=== PATIENT | female | born 1945 | race Caucasian/White ===

== ENCOUNTER 2019-02-23 10:19 | Day surgery (SDC) | payer MEDICARE, OTHER ==
[~2019-02-23] VITALS: Ht 157.5 cm; Wt 62.7 kg
[2019-02-23] MEDS ORDERED: ATOR40TA PO ×2 (14:29→14:33)
[2019-02-23] MEDS ORDERED: Prozac20 MG (14:30)
[2019-02-23] MEDS ORDERED: LEVSOD88 PO (14:30)
[2019-02-23] MEDS ORDERED: GABA800 PO (14:30)
[2019-02-23] MEDS ORDERED: Toviaz8 MG PO (14:30)
[2019-02-23] MEDS ORDERED: MONT10T (14:31)
[2019-02-23] MEDS ORDERED: ESTEST.625 (14:31)
[2019-02-23] MEDS ORDERED: FLUT1DIS5 (14:31)
[2019-02-23] MEDS ORDERED: ALBU90OI6 INH (14:32)
[2019-02-23] MEDS ORDERED: FISH OIL 1,0001 EAC1 PO (14:32)
[2019-02-23] MEDS ORDERED: OMEPRAZOLE20 MG PO (14:32)
[2019-02-23] MEDS ORDERED: ACYC400 PO (14:33)
[2019-02-23] MEDS ORDERED: QUET25 PO (14:33)
[2019-02-23] MEDS ORDERED: ESTR2 PO (14:34)
== END 2019-02-23 12:21 | disposition home or self-care (01) ==
LOC: ORSCSDS 10:19
PROVIDERS: Internal Medicine Gastroenterology
PROC: 0DBP8ZX Excision of Rectum, Via Natural or Artificial Opening Endoscopic, Diagnostic (ICD-10-PCS; principal; 2019-02-23 12:00)
PROC: 0DBK8ZX Excision of Ascending Colon, Via Natural or Artificial Opening Endoscopic, Diagnostic (ICD-10-PCS; principal; 2019-02-23 12:00)
PROC: 0DBH8ZX Excision of Cecum, Via Natural or Artificial Opening Endoscopic, Diagnostic (ICD-10-PCS; principal; 2019-02-23 12:00)
DX: Z12.11 Encounter for screening for malignant neoplasm of colon (principal); D12.0 Benign neoplasm of cecum; D12.2 Benign neoplasm of ascending colon; K64.8 Other hemorrhoids; K57.30 Diverticulosis of large intestine without perforation or abscess without bleeding; E78.5 Hyperlipidemia, unspecified; J45.909 Unspecified asthma, uncomplicated; E03.9 Hypothyroidism, unspecified; G25.0 Essential tremor; K21.9 Gastro-esophageal reflux disease without esophagitis; F31.81 Bipolar II disorder; G47.33 Obstructive sleep apnea (adult) (pediatric); Z79.899 Other long term (current) drug therapy
CPT/HCPCS: 88305; J2704; J7120

== ENCOUNTER → 2019-05-16 | Outpatient (CLI) | payer MEDICARE, OTHER ==
[~2019-05-16] MED LIST: ACYC400 PO; ALBU90OI6 INH; ATOR40TA PO; CYCL0.05OP; ESTEST.625; ESTR2 PO; FISH OIL 1,0001 EAC1 PO; FLUT1DIS5; GABA800 PO; LEVSOD88 PO; MONT10T; OMEPRAZOLE20 MG PO; Prozac20 MG; QUET25 PO; Toviaz8 MG PO; Zantac150 MG
[2019-05-16 10:11] LABS: BASOPHILS ABSOLUTE AUTO 0.03 K/mm3 (0.00-0.23); BASOPHILS PERCENT AUTO 0 % (0-2); EOSINOPHILS ABSOLUTE AUTO 0.15 K/mm3 (0.00-0.68); EOSINOPHILS PERCENT AUTO 1 % (0-6); Hematocrit 35.7 % (33.0-51.0); Hemoglobin 12.1 g/dL (11.5-16.0); IMMATURE GRAN ABSOLUTE AUTO 0.06 K/mm3 (0.00-0.10); IMMATURE GRAN PERCENT AUTO 1 % (0-1); LYMPHOCYTES PERCENT AUTO 8 % (21-46); MONOCYTES ABSOLUTE AUTO 1.63 K/mm3 (0.16-1.47); MONOCYTES PERCENT AUTO 14 % (4-13); Mean Corpuscular HGB 31.1 pg (26.0-34.0); Mean Corpuscular HGB Conc 33.9 g/dL (31.5-36.5); Mean Corpuscular Volume 92 fL (80-100); Mean Platelet Volume 11.2 fL (9.1-12.4); NEUTROPHILS ABSOLUTE AUTO 8.99 K/mm3 (1.96-9.15); NEUTROPHILS PERCENT AUTO 76 % (41-73); Platelet Count 177 K/mm3 (150-400); RDW Coefficient Variation 14.4 % (11.7-14.2); RDW Standard Deviation 48.3 fL (35.1-46.3); Red Blood Cell Count 3.89 M/mm3 (3.80-5.20); White Blood Cell Count 11.86 K/mm3 (4.00-11.30)
[2019-05-16 11:38] LABS: Albumin, Blood 2.9 g/dL (3.4-5.0); Albumin/Globulin Ratio 0.7 (0.8-1.8); Bilirubin, Total 0.6 mg/dL (0.1-1.0); Bun/Creatinine Ratio 14.8 (12.0-20.0); Calcium, Blood 8.9 mg/dL (8.5-10.1); Creatinine, Blood 1.62 mg/dL (0.40-1.00); Potassium, Blood 4.3 mmol/L (3.5-5.5); Total Protein, Blood 6.9 g/dL (6.4-8.2)
[2019-05-16 11:43] LABS: Thyroid Stimulating Hormone 0.219 uIU/mL (0.360-4.800)
== END | disposition home or self-care (01) ==
LOC: LAB EV 10:05 → LAB SHORT 10:05
PROVIDERS: Physician Assistant
DX: N39.0 Urinary tract infection, site not specified (principal); R53.83 Other fatigue
CPT/HCPCS: 80053; 84443; 85025; 87077; 87086; 87147; 87186

== ENCOUNTER 2019-08-07 10:50 | Day surgery (SDC) | payer MEDICARE, OTHER ==
[~2019-08-07] VITALS: Ht 154.9 cm; Wt 59.8 kg
[~2019-08-07 10:50] MED LIST changes: -CYCL0.05OP; -Zantac150 MG
[2019-08-07] MEDS ORDERED: Zantac150 MG (12:13)
[2019-08-07] MEDS ORDERED: CYCL0.05OP (12:14)
== END 2019-08-07 13:20 | disposition home or self-care (01) ==
LOC: ORSCSDS 10:50
PROVIDERS: Internal Medicine Gastroenterology
PROC: 0DB68ZX Excision of Stomach, Via Natural or Artificial Opening Endoscopic, Diagnostic (ICD-10-PCS; principal; 2019-08-07 12:15)
DX: K21.9 Gastro-esophageal reflux disease without esophagitis (principal); E03.9 Hypothyroidism, unspecified; J45.909 Unspecified asthma, uncomplicated; E78.5 Hyperlipidemia, unspecified; G47.33 Obstructive sleep apnea (adult) (pediatric); F31.9 Bipolar disorder, unspecified; K44.9 Diaphragmatic hernia without obstruction or gangrene; I89.0 Lymphedema, not elsewhere classified; Z79.899 Other long term (current) drug therapy
CPT/HCPCS: 36415; 80053; 88305; 88342; J2704; J7120

== ENCOUNTER → 2019-12-31 | Outpatient (CLI) | payer MEDICARE, OTHER ==
[~2019-12-31] MED LIST changes: +CYCL0.05OP; +Zantac150 MG
== END | disposition home or self-care (01) ==
LOC: LAB EV 13:26 → LAB SHORT 13:26
DX: N39.0 Urinary tract infection, site not specified (principal)
CPT/HCPCS: 87077; 87086; 87186

== ENCOUNTER → 2020-07-11 | Outpatient (CLI) | payer MEDICARE, OTHER ==
[2020-07-11 13:48] LABS: Source, Urine Clean Catch
[2020-07-11 15:29] LABS: Bilirubin, Urine Neg (Neg); Blood, Urine Neg (Neg); Glucose Qualitative, Urine Neg (Neg); Ketones, Urine Neg (Neg); Leukocyte Esterase, Urine Neg (Neg); Nitrite, Urine Neg (Neg); Protein, Urine Neg (Neg); Specific Gravity, Urine 1.015 (1.003-1.022); Urobilinogen, Urine NORM (Normal)
[2020-07-11 15:46] LABS: Appearance, Urine Clear (Clear); Color, Urine Yellow (P-Yellow)
== END ==
LOC: LAB SHORT 13:47 → OLS 13:47
PROVIDERS: Internal Medicine
DX: N39.0 Urinary tract infection, site not specified (principal)
CPT/HCPCS: 81003

== ENCOUNTER 2021-04-12 12:37 | Inpatient (IN) | payer MEDICARE, OTHER ==
[~2021-04-12] VITALS: Ht 152.4 cm; Wt 64.5 kg
[~2021-04-12 12:37] MED LIST changes: -MONT10T; +MONT10T PO
[2021-04-12 13:03] LABS: BASOPHILS ABSOLUTE AUTO 0.06 K/mm3 (0.00-0.23); BASOPHILS PERCENT AUTO 1 % (0-2); EOSINOPHILS ABSOLUTE AUTO 0.66 K/mm3 (0.00-0.68); EOSINOPHILS PERCENT AUTO 6 % (0-6); Hematocrit 35.9 % (33.0-51.0); Hemoglobin 11.8 g/dL (11.5-16.0); IMMATURE GRAN ABSOLUTE AUTO 0.03 K/mm3 (0.00-0.10); IMMATURE GRAN PERCENT AUTO 0 % (0-1); LYMPHOCYTES ABSOLUTE AUTO 1.74 K/mm3 (0.84-5.20); LYMPHOCYTES PERCENT AUTO 16 % (21-46); MONOCYTES PERCENT AUTO 6 % (4-13); Mean Corpuscular HGB 31.8 pg (26.0-34.0); Mean Corpuscular HGB Conc 32.9 g/dL (31.5-36.5); Mean Corpuscular Volume 97 fL (80-100); Mean Platelet Volume 11.5 fL (9.1-12.4); NEUTROPHILS ABSOLUTE AUTO 7.78 K/mm3 (1.96-9.15); NEUTROPHILS PERCENT AUTO 71 % (41-73); Platelet Count 215 K/mm3 (150-400); RDW Coefficient Variation 14.3 % (11.7-14.2); RDW Standard Deviation 50.8 fL (35.1-46.3); Red Blood Cell Count 3.71 M/mm3 (3.80-5.20); White Blood Cell Count 10.97 K/mm3 (4.00-11.30)
[2021-04-12] MEDS ORDERED: PROZAC40 MG PO (13:27)
[2021-04-12] MEDS ORDERED: QUETIAPINE FUMA25 MG PO (13:28)
[2021-04-12] MEDS ORDERED: GABA400 PO (13:28)
[2021-04-12] MEDS ORDERED: Neurontin800 MG PO (13:28)
[2021-04-12] MEDS ORDERED: SYNTHROID50 MC1 PO (13:29)
[2021-04-12] MEDS ORDERED: Toviaz8 MG PO (13:29)
[2021-04-12 13:32] LABS: Albumin, Blood 3.2 g/dL (3.4-5.0); Albumin/Globulin Ratio 0.9 (0.8-1.8); Bilirubin, Total 0.3 mg/dL (0.1-1.0); Bun/Creatinine Ratio 49.3 (12.0-20.0); Calcium, Blood 9.7 mg/dL (8.5-10.1); Creatinine, Blood 1.42 mg/dL (0.40-1.00); Globulin, Blood 3.4 g/dL (2.2-4.0); Potassium, Blood 4.3 mmol/L (3.5-5.5); Total Protein, Blood 6.6 g/dL (6.4-8.2)
[2021-04-12 16:57] LABS: SARS-Cov-2 (COVID-19) PCR, MMC NEGATIVE (NEGATIVE)
[2021-04-12] MEDS ORDERED: ESTRADIOL1 MG PO (17:37)
[2021-04-12] MEDS ORDERED: THERA-D2000 UNIT PO (17:38)
[2021-04-12] MEDS ORDERED: FLUT1DIS5 INH (17:38)
[2021-04-12] MEDS ORDERED: Calcium Acetat667 MG PO (17:39)
[2021-04-12] MEDS ORDERED: FISH OIL 1,2001 EAC7 PO (17:40)
[2021-04-12] MEDS ORDERED: DOCU100 PO (17:41)
--- NOTE | 2021-04-12 18:39 | NUR ---
SHIFT SUMMARY PT ARRIVED TO PCU FROM THE ER THIS AFTERNOON. PT REPORTED BLOODY EMESIS AND TARRY DARK STOOL PRIOR TO ADMISSION OVER THE LAST FEW DAYS. PT REPORTS HAVING A VERY MILD EARLY STAGE DEMENTIA AND HAS SOME GAPS IN HER SHORT TERM MEMORY, SHE COULD NOT REMEMBER ALL THE DETAILS OF THIS EVENT AND HAD TO REFER TO HER FOR HELP. PT IS OTHERWISE ALERT AND ORIENTED X4, PT DOES HAVE SOME SLIGHT UNSTEADY GAIT AND REPORTS FEELING MORE WEAK THAN NORMAL AND WOULD BENEFIT FROM SBA. PT HAS PROTONIX RUNNING IN THE IV AND DR. DUNLAP PLANS FOR AN EGD THIS EVENING. ADMISSION SCREENING, HISTORY, MED REC AND ASSESSMENT ARE COMPLETE. PT IS RESTING IN BED AT THIS TIME
[2021-04-12 18:58] LABS: Hematocrit 30.3 % (33.0-51.0); Hemoglobin 10.1 g/dL (11.5-16.0)
--- NOTE | 2021-04-12 21:55 | NUR ---
History, Chart, Medications and Allergies reviewed before start of procedure. Patient confirms NPO status and agrees with scheduled surgery.
--- NOTE | 2021-04-12 22:11 | NUR ---
04/12/21 2211 Mila Kowalski History, Chart, Medications and Allergies reviewed before start of procedure. Patient confirms NPO status and agrees with scheduled surgery. 3-LEAD EKG REVIEWED WITH PHYSICIAN PRIOR TO START OF PROCEDURE. MONITOR INTACT WITH CONTINUOUS PULSE OXIMETRY AND INTERMITTENT BP. PATIENT DETERMINED TO BE ASA APPROPRIATE FOR PROPOFOL SEDATION PRIOR TO START OF PROCEDURE BY DR. DUNLAP.
[2021-04-13 00:33] LABS: Hematocrit 27.6 % (33.0-51.0); Hemoglobin 9.3 g/dL (11.5-16.0)
--- NOTE | 2021-04-13 03:03 | NUR ---
PATIENT IS IMPULSIVE, FORGETFUL AT TIMES, WAXES AND WANES WITH MENTATION POSSIBLE , BED ALARM IS ON, EDUCATION PROVIDED ON HOW TO USE THE CALL LIGHT, PATIENT DOESN'T REMEMBER HAVING PROCEDURE TONIGHT. WILL REORIETATE PATIENT THROUGHOUT THE EVENING.
[2021-04-13 06:09] LABS: Hematocrit 25.7 % (33.0-51.0); Hemoglobin 8.5 g/dL (11.5-16.0); Mean Corpuscular HGB 32.1 pg (26.0-34.0); Mean Corpuscular HGB Conc 33.1 g/dL (31.5-36.5); Mean Corpuscular Volume 97 fL (80-100); Mean Platelet Volume 11.4 fL (9.1-12.4); Platelet Count 159 K/mm3 (150-400); RDW Coefficient Variation 14.6 % (11.7-14.2); Red Blood Cell Count 2.65 M/mm3 (3.80-5.20); White Blood Cell Count 8.49 K/mm3 (4.00-11.30)
[2021-04-13 06:30] LABS: Bun/Creatinine Ratio 35.9 (12.0-20.0); Calcium, Blood 8.3 mg/dL (8.5-10.1); Creatinine, Blood 1.45 mg/dL (0.40-1.00); Potassium, Blood 3.7 mmol/L (3.5-5.5)
--- NOTE | 2021-04-13 13:14 | NUR ---
Patient is lying in bed and alert. Patient immediately tells me about her [employer] Day Rastafarian/Christianity background. She explains how she welcomes all faiths but finds her connection these days in the [employer]. 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 She states that she is Bipolar and has Dementia. 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 She explains about the events that led to her hospitalization and how she is nervous about what might be happening to her medically. I reinforce helpful attitudes and practices and provide therapeutic listening and prayer. I will continue to remain available to patient and family.
--- NOTE | 2021-04-13 17:25 | NUR ---
SHIFT NOTE PT IS IMPLUSIVE, BED ALARM IS ARMED PT SETS OFF BED ALARM TWICE TODAY SHE ATTEMPTED TO EXIT BED WITHOUT USING CALL LIGHT. NO ACTIVE BLEEDING NOTED THIS SHIFT. PT WITH SMALL BLACK PEBBLE BM THIS AFTERNOON. PT WAS UP TO SHOWER WITH PCT WHICH SHE HAD STEADY GAIT AND TOLERATED SHOWER WELL. VSS. PT DENIES PAIN.
--- NOTE | 2021-04-13 18:12 | NUR ---
ASSISTED TO BEDSIDE COMMODE TO VOID, AND THEN BACK IN BED.
--- NOTE | 2021-04-14 05:21 | NUR ---
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 NO NEW CONCERNS OVER NIGHT, SHE HAD ONE SOFT PRESSURE AND RESOLVED OVERNIGHT.
[2021-04-14 09:46] LABS: Hematocrit 27.2 % (33.0-51.0); Hemoglobin 8.9 g/dL (11.5-16.0)
[2021-04-14 16:55] LABS: BASOPHILS ABSOLUTE AUTO 0.07 K/mm3 (0.00-0.23); BASOPHILS PERCENT AUTO 1 % (0-2); EOSINOPHILS ABSOLUTE AUTO 0.77 K/mm3 (0.00-0.68); EOSINOPHILS PERCENT AUTO 10 % (0-6); Hematocrit 27.1 % (33.0-51.0); Hemoglobin 8.9 g/dL (11.5-16.0); IMMATURE GRAN ABSOLUTE AUTO 0.02 K/mm3 (0.00-0.10); IMMATURE GRAN PERCENT AUTO 0 % (0-1); LYMPHOCYTES ABSOLUTE AUTO 1.89 K/mm3 (0.84-5.20); LYMPHOCYTES PERCENT AUTO 25 % (21-46); MONOCYTES ABSOLUTE AUTO 0.81 K/mm3 (0.16-1.47); MONOCYTES PERCENT AUTO 11 % (4-13); Mean Corpuscular HGB 32.4 pg (26.0-34.0); Mean Corpuscular HGB Conc 32.8 g/dL (31.5-36.5); Mean Corpuscular Volume 99 fL (80-100); Mean Platelet Volume 12.2 fL (9.1-12.4); NEUTROPHILS ABSOLUTE AUTO 4.11 K/mm3 (1.96-9.15); NEUTROPHILS PERCENT AUTO 54 % (41-73); Platelet Count 146 K/mm3 (150-400); RDW Coefficient Variation 14.7 % (11.7-14.2); RDW Standard Deviation 53.1 fL (35.1-46.3); Red Blood Cell Count 2.75 M/mm3 (3.80-5.20); White Blood Cell Count 7.67 K/mm3 (4.00-11.30)
--- NOTE | 2021-04-14 18:49 | NUR ---
SHIFT NOTE PT REAMINS ON CONTINUOUS PROTONIX DRIP. PT HAS BEEN SBA UP TO BATHROOM. PT DENIES PAIN. BLACK PEBBLE STOOLS NOTED. VSS. PT OTHERWISE WITH NO ACUTE CHANGES
[2021-04-15 04:23] LABS: Hematocrit 26.7 % (33.0-51.0); Hemoglobin 8.8 g/dL (11.5-16.0)
--- NOTE | 2021-04-15 12:21 | NUR ---
PT ALERT AND ORIENTED X4. AT TIMES CONFUSION BUT ABLE TO REORIENT SELF. REPETATIVE AT TIMES. STATES SHE HAS A SMALL AMOUNT OF DEMENTIA. ON ROOM AIR SATING ABOVE 94%. DENIES SOB. TELE SHOWING SINUS WITH HR 70'S. DENIES CHEST PAIN/PRESSURE. VITAL SIGNS STABLE. BOWEL TONES PRESENT. PERIPHERAL PULSES STRONG. HAD A FORMED DARK BOWEL MOVMENT THIS AM. NO SIGNS OF ACTIVE BLEEDING. PROTONIX INFUSING. ORDERS TO STOP PROTONIX AT [address] DUNLAP. EATING WELL. UP TO BSC WITH STAND BY ASSIST. UPPER ARM POWERGLIDE. DENIES NAUSES. CALL LIGHT IN REACH. WILL CONTINUE TO MONITOR.
--- NOTE | 2021-04-15 12:35 | NUR ---
UPDATE: SPOKE TO DR. DUNLAP ON THE PHONE AND ORDERS FOR PROTONIX DRIP TO STOP AT 1900 AND PO PROTONIX TO BEGIN THIS EVENING. PT WILL BEGIN REGULAR DIET FOR DINNER.
--- NOTE | 2021-04-15 18:50 | NUR ---
SHIFT SUMMARY: NO ACUTE CHANGES, SEE PREVIOUS NOTES. PROTONIX WILL BE STOPPED AT 1900. UP TO BEDSIDE COMMODE WITH 1 PERSON ASSIST. DENIES PAIN OR NEEDS AT THIS TIME. EATING WELL. USING CALL LIGHT APPROPRIATLY. VTIAL SIGNS REMAIN STABLE. WILL CONTINUE TO MONITOR AND REPORT OFF.
--- NOTE | 2021-04-15 19:06 | NUR ---
PROTONIX DRIP STOPPED, IV FLUSHED AND SALINE LOCKED. REPORTED OFF TO SHOE REPAIR SUPERVISOR RN.
--- NOTE | 2021-04-15 22:12 | NUR ---
ASSUMED CARE NOTE: ASSUMED CARE OF PT AT 1900, RECEVIED REPORT FROM MELLY LESTER. PT IS ABLE AND ORIENTEDX3, HOWEVER, STS SHE IS FORGETFUL AT TIMES. PT IS ON CPAP, WITH SpO2 ABOVE 90%, NO RESP DISTRESS NOTED. PT ON TELE WITH HR IN THE 60-70, BP STABLE. PT DENIES NAUSEA AT TIME. PT SWITCHED TO PO PROTONIX, IV DRIP D/C AT 1900. PT IS A SBA TO RESTROOM, BED ALARM ON DUE TO PT BEING IMPULSIVE. HOWEVER, STEADY GAIT. WILL MONITOR FOR SIGNS OF GI BLEED. CALL LIGHT WITHIN REACH, BED AT LOWEST LEVEL.
--- NOTE | 2021-04-16 05:57 | NUR ---
SHIFT SUMMARY: NO ACUTE CHANGES OVER NIGHT. PT CONTINUES TO BE ALERT AND ORIENTED, IS IMPULSIVE AND WILL GET OUT OF BED W/O ASSISTANCE TO USE BSC. PT STS SHE IS UNABLE TO WAIT, DUE URINARY URGENCY. THEREFORE BED ALARM IS ON FOR PATIENT SAFTEY. PT HAS BEEN IN SR WITH HR IN THE 70'S, BP STABLE. NO S/S OF GI DISTRESS/ BLEEDING. PT ON RA WITH SPO2 ABOVE 90% . WILL CONTINUE TO MONITOR PT UNTIL REPORT IS GIVEN TO ONCOMING SHIFT.
--- NOTE | 2021-04-16 11:00 | NUR ---
PT ALERT AND ORIENTED X4. AT TIMES FORGETFUL. ON ROOM AIR SATING ABOVE 94%. DENIES SOB. TELE SHOWING SINUS WITH HR IN THE 70'S. DENIES CHEST PAIN/PRESSURE. VITAL SIGNS STABLE. ABDOMEN SOFT/NONTENDER. DENIES NAUSEA. NO SIGNS OF ACTIVE BLEED. NO STOOL THIS AM. IV TO UPPER LEFT ARM FLUSHING WELL AND SALINE LOCKED. ONE PERSON ASSIST FOR SAFETY TO BEDSIDE COMMODE. EATING WELL. CALL LIGHT IN REACH. WILL CONTINUE TO MONITOR.
[2021-04-16] MEDS ORDERED: PANT40 PO (12:17)
--- NOTE | 2021-04-16 12:51 | NUR ---
DISCHARGE: NO ACUTE CHANGES, SEE PREVIOUS NOTE. VITAL SIGNS REMAIN STABLE. NO SIGNS OF BLEEDING OR NAUSEA. ABDOMEN REMAINS SOFT AND NONTENDER. DISCHARGE INSTRUCTIONS REVIEWED AND QUESTIONS ANSWERED. IV TAKEN OUT PER PROTOCOL. TELE REMOVED. 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 LEFT UNIT WITH AND PERSONAL BELONGINGS.
== END 2021-04-16 12:34 | disposition home or self-care (01) | DRG 392 ==
LOC: ER 12:37 → PCU 14:59 → ER 14:59 → PCU 15:00 → ER 15:00 → PCU 15:00
PROVIDERS: Internal Medicine Gastroenterology; Physician Assistant; ADMIT Internal Medicine
PROC: 0W3P8ZZ Control Bleeding in Gastrointestinal Tract, Via Natural or Artificial Opening Endoscopic (ICD-10-PCS; principal; 2021-04-12 16:30)
PROC: 5A09357 Assistance with Respiratory Ventilation, Less than 24 Consecutive Hours, Continuous Positive Airway Pressure (ICD-10-PCS; 2021-04-13)
DX: K22.8 Other specified diseases of esophagus (principal); Z20.822 Contact with and (suspected) exposure to COVID-19; D50.0 Iron deficiency anemia secondary to blood loss (chronic); K22.2 Esophageal obstruction; K21.9 Gastro-esophageal reflux disease without esophagitis; K44.9 Diaphragmatic hernia without obstruction or gangrene; G31.09 Other frontotemporal neurocognitive disorder; F02.80 Dementia in other diseases classified elsewhere, unspecified severity, without behavioral disturbance, psychotic disturbance, mood disturbance, and anxiety; E78.5 Hyperlipidemia, unspecified; J45.909 Unspecified asthma, uncomplicated; E03.9 Hypothyroidism, unspecified; F31.9 Bipolar disorder, unspecified; N18.30 Chronic kidney disease, stage 3 unspecified; G47.33 Obstructive sleep apnea (adult) (pediatric); Z86.010 Personal history of colon polyps; Z90.5 Acquired absence of kidney; Z88.2 Allergy status to sulfonamides; Z88.8 Allergy status to other drugs, medicaments and biological substances; Z79.899 Other long term (current) drug therapy; Z79.51 Long term (current) use of inhaled steroids
CPT/HCPCS: 36415; 80048; 80053; 83690; 85014; 85018; 85025; 85027; 86900; 86901; 93005; 93010; 94640; 94660; 94760; 94762; 96374; 96376; 99285-25; A9270; C9113; G0378; G0480; J0171; J2250; J2405; J2704; J7030; J7120; U0004

== ENCOUNTER → 2021-05-26 | Outpatient (CLI) | payer MEDICARE, OTHER ==
[~2021-05-26] MED LIST changes: +Calcium Acetat667 MG PO; +DOCU100 PO; +ESTRADIOL1 MG PO; +FISH OIL 1,2001 EAC7 PO; +FLUT1DIS5 INH; +GABA400 PO; +Neurontin800 MG PO; +PANT40 PO; +PROZAC40 MG PO; +QUETIAPINE FUMA25 MG PO; +SYNTHROID50 MC1 PO; +THERA-D2000 UNIT PO
[2021-05-26 17:33] LABS: BASOPHILS ABSOLUTE AUTO 0.04 K/mm3 (0.00-0.23); BASOPHILS PERCENT AUTO 0 % (0-2); EOSINOPHILS ABSOLUTE AUTO 1.25 K/mm3 (0.00-0.68); EOSINOPHILS PERCENT AUTO 11 % (0-6); Hematocrit 27.1 % (33.0-51.0); Hemoglobin 8.6 g/dL (11.5-16.0); IMMATURE GRAN ABSOLUTE AUTO 0.03 K/mm3 (0.00-0.10); IMMATURE GRAN PERCENT AUTO 0 % (0-1); LYMPHOCYTES ABSOLUTE AUTO 1.29 K/mm3 (0.84-5.20); LYMPHOCYTES PERCENT AUTO 12 % (21-46); MONOCYTES ABSOLUTE AUTO 1.22 K/mm3 (0.16-1.47); MONOCYTES PERCENT AUTO 11 % (4-13); Mean Corpuscular HGB Conc 31.7 g/dL (31.5-36.5); Mean Corpuscular Volume 88 fL (80-100); Mean Platelet Volume 10.9 fL (9.1-12.4); NEUTROPHILS ABSOLUTE AUTO 7.12 K/mm3 (1.96-9.15); NEUTROPHILS PERCENT AUTO 65 % (41-73); NRBC ABSOLUTE 0.04 K/mm3 (0.00-0.02); NRBC Auto 0.4 /100 WBC (0.0-0.2); Platelet Count 356 K/mm3 (150-400); RDW Coefficient Variation 16.7 % (11.7-14.2); RDW Standard Deviation 53.6 fL (35.1-46.3); Red Blood Cell Count 3.07 M/mm3 (3.80-5.20); White Blood Cell Count 10.95 K/mm3 (4.00-11.30)
[2021-05-26 17:41] LABS: Albumin, Blood 3.1 g/dL (3.4-5.0); Albumin/Globulin Ratio 0.8 (0.8-1.8); Bilirubin, Total 0.4 mg/dL (0.1-1.0); Bun/Creatinine Ratio 15.9 (12.0-20.0); Calcium, Blood 7.7 mg/dL (8.5-10.1); Creatinine, Blood 1.32 mg/dL (0.40-1.00); Globulin, Blood 3.9 g/dL (2.2-4.0); Potassium, Blood 3.9 mmol/L (3.5-5.5)
== END | disposition home or self-care (01) ==
LOC: LAB 17:27 → LAB SHORT 17:27
PROVIDERS: Physician Assistant
DX: R53.83 Other fatigue (principal)
CPT/HCPCS: 80053; 85025

== ENCOUNTER 2021-05-28 13:37 | Inpatient (IN) | payer MEDICARE, OTHER ==
[~2021-05-28] VITALS: Ht 162.6 cm; Wt 61.0 kg
[2021-05-28 14:52] LABS: BASOPHILS ABSOLUTE AUTO 0.04 K/mm3 (0.00-0.23); BASOPHILS PERCENT AUTO 0 % (0-2); EOSINOPHILS ABSOLUTE AUTO 0.48 K/mm3 (0.00-0.68); EOSINOPHILS PERCENT AUTO 3 % (0-6); Hematocrit 26.5 % (33.0-51.0); Hemoglobin 8.1 g/dL (11.5-16.0); IMMATURE GRAN ABSOLUTE AUTO 0.08 K/mm3 (0.00-0.10); IMMATURE GRAN PERCENT AUTO 1 % (0-1); LYMPHOCYTES ABSOLUTE AUTO 1.24 K/mm3 (0.84-5.20); LYMPHOCYTES PERCENT AUTO 7 % (21-46); MONOCYTES ABSOLUTE AUTO 1.65 K/mm3 (0.16-1.47); MONOCYTES PERCENT AUTO 9 % (4-13); Mean Corpuscular HGB 27.4 pg (26.0-34.0); Mean Corpuscular HGB Conc 30.6 g/dL (31.5-36.5); Mean Corpuscular Volume 90 fL (80-100); Mean Platelet Volume 10.7 fL (9.1-12.4); NEUTROPHILS PERCENT AUTO 80 % (41-73); NRBC ABSOLUTE 0.04 K/mm3 (0.00-0.02); NRBC Auto 0.2 /100 WBC (0.0-0.2); Platelet Count 329 K/mm3 (150-400); RDW Standard Deviation 55.8 fL (35.1-46.3); Red Blood Cell Count 2.96 M/mm3 (3.80-5.20); White Blood Cell Count 17.49 K/mm3 (4.00-11.30)
[2021-05-28 15:10] LABS: Albumin, Blood 2.8 g/dL (3.4-5.0); Albumin/Globulin Ratio 0.9 (0.8-1.8); Bilirubin, Total 0.3 mg/dL (0.1-1.0); Bun/Creatinine Ratio 14.6 (12.0-20.0); Calcium, Blood 7.6 mg/dL (8.5-10.1); Creatinine, Blood 1.23 mg/dL (0.40-1.00); Globulin, Blood 3.1 g/dL (2.2-4.0); Total Protein, Blood 5.9 g/dL (6.4-8.2)
[2021-05-28 20:02] LABS: Adenovirus F 40/41 Not Detected (NOT DETECT); Astrovirus Not Detected (NOT DETECT); Campylobacter Sp Not Detected (NOT DETECT); Cryptosporidium Not Detected (NOT DETECT); Cyclospora Cayetanensis Not Detected (NOT DETECT); E. Coli O157 Not Detected (NOT DETECT); Entamoeba Histolytica Not Detected (NOT DETECT); Enteroaggregative E. coli-EAEC Not Detected (NOT DETECT); Enteropathogenic E. coli-EPEC Not Detected (NOT DETECT); Enterotoxigenic E. coli-ETEC Not Detected (NOT DETECT); Giardia Lamblia Not Detected (NOT DETECT); Norovirus GI/GII Not Detected (NOT DETECT); Plesiomonas Shigelloides Not Detected (NOT DETECT); Rotavirus A Not Detected (NOT DETECT); Salmonella Sp Not Detected (NOT DETECT); Sapovirus Not Detected (NOT DETECT); Shiga Toxin-prod E. coli-STEC Not Detected (NOT DETECT); Shigella/Enteroin E. coli-EIEC Not Detected (NOT DETECT); Vibrio Cholerae Not Detected (NOT DETECT); Vibrio Sp Not Detected (NOT DETECT); Yersinia Enterocolitica Not Detected (NOT DETECT)
[2021-05-28 20:25] LABS: Source, Urine Clean Catch
[2021-05-28 20:33] LABS: Appearance, Urine Clear (Clear); Bilirubin, Urine Neg (Neg); Blood, Urine Neg (Neg); Color, Urine Yellow (P-Yellow); Glucose Qualitative, Urine Neg (Neg); Ketones, Urine Neg (Neg); Leukocyte Esterase, Urine 1+ (Neg); Nitrite, Urine Neg (Neg); Protein, Urine 1+ (Neg); Urobilinogen, Urine NORM (Normal)
[2021-05-28 20:46] LABS: Bacteria Mod /hpf; Red Blood Cells, Urine Not Seen /hpf (0-2); Squamous Epithelial Cells Few /hpf (Few); White Blood Cells, Urine 0-2 /hpf (0-5)
--- NOTE | 2021-05-28 22:40 | NUR ---
REPORT RECIEVED FROM RAHEEM KINSEY RN AT 2234 AND AWAITING PT T/F TO ROOM 360.
--- NOTE | 2021-05-29 04:46 | NUR ---
T/F AND SUMMARY: PT T/F TO ROOM 360 VIA [employer] AT 2253. SHE'S A/OX3 W/SOME REMINDERS REQUIRED TO DATE SPECIFICS. SHE HAS MEMORY ISSUES/DEMENTIA W/BED ALARM ON FOR OCC IMPULSIVITY. CALL LIGHT IN REACH AND PT USED IT CORRECTLY MOST OF NOCTE. SHE ANSWERED Q'S APPROPRIATELY BUT SPEECH WANDERS AT TIMES W/ REFOCUSING OF CONVERSATION NEEDED. SHE'S AN OK HISTORIAN BUT IS UNAWARE OF HOME MEDS, HEALTH HX/MED LIST MOSTLY OBTAINED FROM ELECTRONIC RECORD. SHE REMAINS IN CONTACT ISO FOR C.DIFF AND IS RECIEVING ORAL VANCO PER EMAR. PT DENIED ABDO PAIN AND N/V DESPITE ONGOING DIARRHEA, PANCREATITIS AND GASTRITIS. NS INFUSES AT 100 ML/HR AND PT TOLERATED NPO W/ICE CHIPS. TELEMETRY INTACT IN NSR. BX TX'S PER RT. VSS/AFEBRILE AND NO ACUTE CHANGES, WCTM/REPORT TO DAY RN.
[2021-05-29 04:58] LABS: Hematocrit 23.6 % (33.0-51.0); Hemoglobin 7.2 g/dL (11.5-16.0); Mean Corpuscular HGB 27.4 pg (26.0-34.0); Mean Corpuscular HGB Conc 30.5 g/dL (31.5-36.5); Mean Corpuscular Volume 90 fL (80-100); Mean Platelet Volume 10.8 fL (9.1-12.4); Platelet Count 302 K/mm3 (150-400); RDW Standard Deviation 55.6 fL (35.1-46.3); Red Blood Cell Count 2.63 M/mm3 (3.80-5.20); White Blood Cell Count 15.34 K/mm3 (4.00-11.30)
[2021-05-29 05:30] LABS: Albumin, Blood 2.4 g/dL (3.4-5.0); Albumin/Globulin Ratio 0.8 (0.8-1.8); BAND PERCENT MAN 8 % (0-8); BASOPHILS ABSOLUTE MAN 0.15 K/mm3 (0.00-0.23); BASOPHILS PERCENT MAN 1 % (0-2); Bilirubin, Total 0.4 mg/dL (0.1-1.0); Bun/Creatinine Ratio 12.6 (12.0-20.0); Creatinine, Blood 1.27 mg/dL (0.40-1.00); EOSINOPHILS ABSOLUTE MAN 0.92 K/mm3 (0.00-0.68); EOSINOPHILS PERCENT MAN 6 % (0-6); LYMPHOCYTES ABSOLUTE MAN 0.46 K/mm3 (0.84-5.20); LYMPHOCYTES PERCENT MAN 3 % (21-46); MONOCYTES ABSOLUTE MAN 1.38 K/mm3 (0.16-1.47); MONOCYTES PERCENT MAN 9 % (4-13); NEUTROPHILS ABSOLUTE MAN 12.42 K/mm3 (1.96-9.15); Potassium, Blood 3.6 mmol/L (3.5-5.5); SEG NEUTROPHILS PERCENT MAN 73 % (41-73); TOTAL CELLS COUNTED 100; Total Protein, Blood 5.4 g/dL (6.4-8.2)
--- NOTE | 2021-05-29 14:12 | NUR ---
Upon recieving an admit referral for spiritual care, I visit patient. Patient is pleasant and very talkative. 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 I reinforce helpful attitudes and practices and provide therapeutic listening and prayer. Patient responds well and shows signs of being encouraged in her jennifer.
--- NOTE | 2021-05-29 16:12 | NUR ---
SHIFT SUMMARY PT AxOx4. PLEASANT AND COOPERATIVE WITH CARE. PT REPORTS MULIPLE LOOSE BM TODAY WITH URGENCY TO GET TO TOILET WHEN SHE NEEDS TO GO. PT SBA TO BSC. PT IN FOR VISIT, AND UPDATED ON PLAN OF CARE. IV FLUIDS RUNNING. TELE RUNNING AT SR 86. PT WAS ADVANCED TO LIQUID DIET TODAY AND TOLERATED WELL. PT DENIES PAIN/NEEDS AT THIS TIME. VITALS REVIEWED. PT CURRENTLY RESTING IN BED WITH CALL LIGHT IN REACH.
--- NOTE | 2021-05-30 03:55 | NUR ---
SUMMARY: PT A/OX3-4, CALLS APPROPRIATELY TO SPEFICY NEEDS BUT IS MILDY FORGETFULL AT TIMES W/IMPULSIVITY OOB R/T BM URGENCY. DIARRHEA PERSISTS BUT SEEMS TO HAVE SLOWED IN FREQUENCY. ORAL VANCO BEING RECIEVED PER EMAR. SHE'S SBA TO [facility] W/ALARM ON FOR SAFETY. IVF COMPLETED AND IV SL, PT IS TOLERATING FL DIET W/O ISSUES. SHE'S DENIED PAIN, N/V AND ABDO DISCOMFORT. PT REMAINS NSR AT 70'S-80'S BPM. VSS/AFEBRILE AND NO ACUTE CHANGES. SHE SLEPT MAJORITY OF NOCTE W/O COMPLAINTS. WCTM AND REPORT TO DAY RN.
[2021-05-30 05:09] LABS: BASOPHILS ABSOLUTE AUTO 0.04 K/mm3 (0.00-0.23); BASOPHILS PERCENT AUTO 0 % (0-2); EOSINOPHILS ABSOLUTE AUTO 1.16 K/mm3 (0.00-0.68); EOSINOPHILS PERCENT AUTO 10 % (0-6); Hematocrit 21.8 % (33.0-51.0); Hemoglobin 6.7 g/dL (11.5-16.0); IMMATURE GRAN ABSOLUTE AUTO 0.09 K/mm3 (0.00-0.10); IMMATURE GRAN PERCENT AUTO 1 % (0-1); LYMPHOCYTES ABSOLUTE AUTO 1.86 K/mm3 (0.84-5.20); LYMPHOCYTES PERCENT AUTO 15 % (21-46); MONOCYTES PERCENT AUTO 12 % (4-13); Mean Corpuscular HGB 27.5 pg (26.0-34.0); Mean Corpuscular HGB Conc 30.7 g/dL (31.5-36.5); Mean Corpuscular Volume 89 fL (80-100); Mean Platelet Volume 10.7 fL (9.1-12.4); NEUTROPHILS ABSOLUTE AUTO 7.59 K/mm3 (1.96-9.15); NEUTROPHILS PERCENT AUTO 62 % (41-73); Platelet Count 271 K/mm3 (150-400); RDW Coefficient Variation 16.8 % (11.7-14.2); RDW Standard Deviation 54.7 fL (35.1-46.3); Red Blood Cell Count 2.44 M/mm3 (3.80-5.20); White Blood Cell Count 12.24 K/mm3 (4.00-11.30)
[2021-05-30 05:40] LABS: Bun/Creatinine Ratio 8.3 (12.0-20.0); Calcium, Blood 7.1 mg/dL (8.5-10.1); Creatinine, Blood 1.09 mg/dL (0.40-1.00); Potassium, Blood 3.7 mmol/L (3.5-5.5)
--- NOTE | 2021-05-30 06:09 | NUR ---
HGB/HCT DOWN TO 6.7/21.8 THIS AM. MADE AWARE W/NEW ORDERS RECIEVED TO TRANSFUSE 1 UNIT PRBC'S. PT HAS DENIED ABDO PAIN, DISTENSION, N/V AND HASN'T SHOWN ANY S/S GI BLEEDING. SHE CONT'S TO HAVE DIARRHEA. PT REPORTED IT CHANGING COLOR THIS SHIFT BUT IT NOW APPEARS DARK GREEN/BROWN WHEN IT WAS PREVIOUSLY BROWN/ORANGE. WCTM AND ADMIN PRBC'S UPON ARRIVAL FROM BLOOD BANK.
--- NOTE | 2021-05-30 14:43 | NUR ---
Pt. is in bed relaxed she reports doing fine encouraged her and prayed for her.
[2021-05-30 17:26] LABS: Hematocrit 27.1 % (33.0-51.0); Hemoglobin 8.5 g/dL (11.5-16.0)
--- NOTE | 2021-05-30 17:35 | NUR ---
PLEASE REFER TO STUDENT NOTE FOR SHIFT SUMMARY.
--- NOTE | 2021-05-30 18:00 | NUR ---
PATIENT REPORTED HAVING ONE BM THIS AM THAT WAS MORE FORMED AND SOFT. DENIED ANY ABDOMINAL PAIN. PATIENT RECIEVED AN INFUSION OF PRBC AFTER HAVING A HGB OF 6.7 THIS AM. LABS WERE DRAWN AND RESULTS STILL PENDING. PATIENT IS INDEPENDENT TO THE CAMMODE. PATIENTS BED IS IN LOWEST POSITION WITH CALL LIGHT IN REACH.
--- NOTE | 2021-05-31 04:25 | NUR ---
PRODUCTION ARTIST SUMMARY PT SLEPT WELL TONIGHT. SBA TO INDEPENDENT. DENIED PAIN, NAUSEA, SOB. PT HAD 2-3 LOOSE BM'S OVERNIGHT. VSS. ROOM AIR MAINTAINING GOOD 02 SATS. TELE SR IN THE 80'S PER MENTAL HEALTH PROGRAM DIRECTOR. NO ACUTE CHANGES. CALL LIGHT WITHIN REACH. WILL CONTINUE TO MONITOR.
[2021-05-31 05:07] LABS: BASOPHILS ABSOLUTE AUTO 0.07 K/mm3 (0.00-0.23); BASOPHILS PERCENT AUTO 1 % (0-2); EOSINOPHILS ABSOLUTE AUTO 1.55 K/mm3 (0.00-0.68); EOSINOPHILS PERCENT AUTO 12 % (0-6); Hematocrit 26.4 % (33.0-51.0); Hemoglobin 8.4 g/dL (11.5-16.0); IMMATURE GRAN ABSOLUTE AUTO 0.05 K/mm3 (0.00-0.10); IMMATURE GRAN PERCENT AUTO 0 % (0-1); LYMPHOCYTES ABSOLUTE AUTO 2.06 K/mm3 (0.84-5.20); LYMPHOCYTES PERCENT AUTO 15 % (21-46); MONOCYTES ABSOLUTE AUTO 1.41 K/mm3 (0.16-1.47); MONOCYTES PERCENT AUTO 11 % (4-13); Mean Corpuscular HGB Conc 31.8 g/dL (31.5-36.5); Mean Corpuscular Volume 88 fL (80-100); Mean Platelet Volume 10.5 fL (9.1-12.4); NEUTROPHILS ABSOLUTE AUTO 8.23 K/mm3 (1.96-9.15); NEUTROPHILS PERCENT AUTO 62 % (41-73); Platelet Count 287 K/mm3 (150-400); RDW Coefficient Variation 16.6 % (11.7-14.2); RDW Standard Deviation 53.1 fL (35.1-46.3); White Blood Cell Count 13.37 K/mm3 (4.00-11.30)
[2021-05-31 05:25] LABS: Bun/Creatinine Ratio 8.9 (12.0-20.0); Calcium, Blood 8.2 mg/dL (8.5-10.1); Creatinine, Blood 1.01 mg/dL (0.40-1.00)
[2021-05-31] MEDS ORDERED: VANCOCIN HCL250 MG PO (16:22)
[2021-05-31] MEDS ORDERED: PROBIOTIC1 EA13 PO (16:23)
--- NOTE | 2021-05-31 18:07 | NUR ---
DISCHARGE SUMMARY PT AxOx4. PLEASANT AND COOPERATIVE WITH CARE. PT INDEPENDENT IN THE ROOM, EATING AND DRINKING WELL, AND PT HAD A SHOWER TODAY. PT REPORTS HER BM FREQUENCY HAS SLOWED DOWN AND BM'S ARE BEGINNING TO FORM, BUT ARE STILL SOFT. PT IN WITH HER TO DISCUSS DC TO HOME. DC INSTRUCTIONS DISCUSSED INCLUDING FOLLOW UP APPOINTMENT, DIET RECOMMENDATIONS AND DC MEDICATIONS. PT AND VERBALIZE UNDERSTANDING AND DENY ANY FURTHER QUESTIONS AT THIS TIME. VITALS REVIEWED AND PT FINISHED DINNER BEFORE LEAVING VIA WC, SAFELY ESCORTED OUT BY MODULAR HOME CREW MEMBER AND .
== END 2021-05-31 18:45 | disposition home or self-care (01) | DRG 372 ==
LOC: ER 13:37 → MEDS 21:13
PROVIDERS: Internal Medicine; Physician Assistant; ADMIT Internal Medicine
PROC: 30233N1 Transfusion of Nonautologous Red Blood Cells into Peripheral Vein, Percutaneous Approach (ICD-10-PCS; principal; 2021-05-30)
DX: A04.72 Enterocolitis due to Clostridium difficile, not specified as recurrent (principal); G93.49 Other encephalopathy; D63.1 Anemia in chronic kidney disease; K21.9 Gastro-esophageal reflux disease without esophagitis; E78.5 Hyperlipidemia, unspecified; J45.909 Unspecified asthma, uncomplicated; E03.9 Hypothyroidism, unspecified; F31.9 Bipolar disorder, unspecified; K80.20 Calculus of gallbladder without cholecystitis without obstruction; K44.9 Diaphragmatic hernia without obstruction or gangrene; E86.0 Dehydration; N18.30 Chronic kidney disease, stage 3 unspecified; Z86.010 Personal history of colon polyps; Z88.2 Allergy status to sulfonamides; Z88.8 Allergy status to other drugs, medicaments and biological substances; Z90.710 Acquired absence of both cervix and uterus; Z98.890 Other specified postprocedural states; Z79.899 Other long term (current) drug therapy
CPT/HCPCS: 0097U; 36415; 71046; 76705; 80048; 80053; 81001; 83540; 83550; 83605; 83690; 84484; 85014; 85018; 85025; 86850; 86900; 86901; 86923; 87040; 87086; 87324; 93005; 93010; 93971; 94640; 94664; 94760; 96360; 96361; 99285-25; A9270; J1650; J3370; J7030; J7050; J7121; P9016

== ENCOUNTER → 2021-05-28 | Outpatient (CLI) | payer MEDICARE, OTHER ==
[2021-05-28 12:22] LABS: BASOPHILS ABSOLUTE AUTO 0.05 K/mm3 (0.00-0.23); BASOPHILS PERCENT AUTO 0 % (0-2); EOSINOPHILS ABSOLUTE AUTO 0.47 K/mm3 (0.00-0.68); EOSINOPHILS PERCENT AUTO 3 % (0-6); Hematocrit 25.7 % (33.0-51.0); Hemoglobin 8.2 g/dL (11.5-16.0); IMMATURE GRAN ABSOLUTE AUTO 0.08 K/mm3 (0.00-0.10); IMMATURE GRAN PERCENT AUTO 1 % (0-1); LYMPHOCYTES ABSOLUTE AUTO 0.87 K/mm3 (0.84-5.20); LYMPHOCYTES PERCENT AUTO 5 % (21-46); MONOCYTES ABSOLUTE AUTO 1.51 K/mm3 (0.16-1.47); MONOCYTES PERCENT AUTO 9 % (4-13); Mean Corpuscular HGB 27.9 pg (26.0-34.0); Mean Corpuscular HGB Conc 31.9 g/dL (31.5-36.5); Mean Corpuscular Volume 87 fL (80-100); Mean Platelet Volume 10.8 fL (9.1-12.4); NEUTROPHILS ABSOLUTE AUTO 14.01 K/mm3 (1.96-9.15); NEUTROPHILS PERCENT AUTO 82 % (41-73); NRBC ABSOLUTE 0.03 K/mm3 (0.00-0.02); NRBC Auto 0.2 /100 WBC (0.0-0.2); Platelet Count 340 K/mm3 (150-400); RDW Coefficient Variation 17.1 % (11.7-14.2); RDW Standard Deviation 54.3 fL (35.1-46.3); Red Blood Cell Count 2.94 M/mm3 (3.80-5.20); White Blood Cell Count 16.99 K/mm3 (4.00-11.30)
[2021-05-28 12:41] LABS: Albumin, Blood 2.8 g/dL (3.4-5.0); Albumin/Globulin Ratio 0.8 (0.8-1.8); Bilirubin, Total 0.4 mg/dL (0.1-1.0); Bun/Creatinine Ratio 13.2 (12.0-20.0); Calcium, Blood 7.5 mg/dL (8.5-10.1); Creatinine, Blood 1.29 mg/dL (0.40-1.00); Globulin, Blood 3.4 g/dL (2.2-4.0); Thyroid Stimulating Hormone 1.819 uIU/mL (0.360-4.800); Total Protein, Blood 6.2 g/dL (6.4-8.2)
== END | disposition home or self-care (01) ==
LOC: LAB 12:17 → LAB SHORT 12:17
PROVIDERS: Physician Assistant
DX: D64.9 Anemia, unspecified (principal); R53.83 Other fatigue
CPT/HCPCS: 80053; 83690; 84443; 85025

== ENCOUNTER 2021-08-17 18:14 | Inpatient (IN) | payer MEDICARE, OTHER ==
[~2021-08-17] VITALS: Ht 154.9 cm; Wt 58.6 kg
[2021-08-17 18:53] LABS: Hematocrit 38.6 % (33.0-51.0); Hemoglobin 11.4 g/dL (11.5-16.0); Mean Corpuscular HGB Conc 29.5 g/dL (31.5-36.5); Mean Corpuscular Volume 85 fL (80-100); Mean Platelet Volume 10.8 fL (9.1-12.4); NRBC ABSOLUTE 0.02 K/mm3 (0.00-0.02); NRBC Auto 0.1 /100 WBC (0.0-0.2); Platelet Count 321 K/mm3 (150-400); RDW Standard Deviation 63.1 fL (35.1-46.3); Red Blood Cell Count 4.56 M/mm3 (3.80-5.20); White Blood Cell Count 19.58 K/mm3 (4.00-11.30)
[2021-08-17 19:11] LABS: Albumin, Blood 3.2 g/dL (3.4-5.0); Albumin/Globulin Ratio 0.9 (0.8-1.8); Bilirubin, Total 1.2 mg/dL (0.1-1.0); Bun/Creatinine Ratio 11.5 (12.0-20.0); Calcium, Blood 7.8 mg/dL (8.5-10.1); Creatinine, Blood 2.43 mg/dL (0.40-1.00); Globulin, Blood 3.5 g/dL (2.2-4.0); Potassium, Blood 4.6 mmol/L (3.5-5.5); Total Protein, Blood 6.7 g/dL (6.4-8.2)
[2021-08-17 20:05] LABS: BAND PERCENT MAN 16 % (0-8); BASOPHILS PERCENT MAN 0 % (0-2); EOSINOPHILS ABSOLUTE MAN 0.78 K/mm3 (0.00-0.68); EOSINOPHILS PERCENT MAN 4 % (0-6); LYMPHOCYTES ABSOLUTE MAN 0.39 K/mm3 (0.84-5.20); LYMPHOCYTES PERCENT MAN 2 % (21-46); MONOCYTES ABSOLUTE MAN 0.58 K/mm3 (0.16-1.47); MONOCYTES PERCENT MAN 3 % (4-13); NEUTROPHILS ABSOLUTE MAN 17.81 K/mm3 (1.96-9.15); SEG NEUTROPHILS PERCENT MAN 75 % (41-73); TOTAL CELLS COUNTED 100
[2021-08-17 20:27] LABS: Source, Urine Clean Catch
[2021-08-17 20:30] LABS: Appearance, Urine Cloudy (Clear); Bilirubin, Urine Neg (Neg); Blood, Urine 3+ (Neg); Color, Urine Yellow (P-Yellow); Glucose Qualitative, Urine Neg (Neg); Ketones, Urine Neg (Neg); Leukocyte Esterase, Urine 3+ (Neg); Nitrite, Urine Neg (Neg); Protein, Urine 2+ (Neg); Urobilinogen, Urine NORM (Normal)
[2021-08-17 20:43] LABS: White Blood Cells, Urine 50-100 /hpf (0-5)
[2021-08-17 20:45] LABS: Bacteria Many /hpf; Squamous Epithelial Cells Few /hpf (Few)
[2021-08-17 23:29] LABS: SARS-Cov-2 (COVID-19) PCR, MMC NEGATIVE (NEGATIVE)
[2021-08-18 05:05] LABS: BASOPHILS ABSOLUTE AUTO 0.07 K/mm3 (0.00-0.23); BASOPHILS PERCENT AUTO 0 % (0-2); Hematocrit 31.3 % (33.0-51.0); Hemoglobin 9.4 g/dL (11.5-16.0); LYMPHOCYTES ABSOLUTE AUTO 1.37 K/mm3 (0.84-5.20); LYMPHOCYTES PERCENT AUTO 8 % (21-46); MONOCYTES ABSOLUTE AUTO 2.07 K/mm3 (0.16-1.47); MONOCYTES PERCENT AUTO 12 % (4-13); Mean Corpuscular HGB 24.7 pg (26.0-34.0); Mean Corpuscular Volume 82 fL (80-100); Mean Platelet Volume 10.9 fL (9.1-12.4); Platelet Count 242 K/mm3 (150-400); RDW Coefficient Variation 21.4 % (11.7-14.2); RDW Standard Deviation 59.3 fL (35.1-46.3); White Blood Cell Count 17.35 K/mm3 (4.00-11.30)
[2021-08-18 05:06] LABS: EOSINOPHILS ABSOLUTE AUTO 0.24 K/mm3 (0.00-0.68); EOSINOPHILS PERCENT AUTO 1 % (0-6); IMMATURE GRAN ABSOLUTE AUTO 0.09 K/mm3 (0.00-0.10); IMMATURE GRAN PERCENT AUTO 1 % (0-1); NEUTROPHILS ABSOLUTE AUTO 13.51 K/mm3 (1.96-9.15); NEUTROPHILS PERCENT AUTO 78 % (41-73)
[2021-08-18 05:31] LABS: Albumin, Blood 2.2 g/dL (3.4-5.0); Albumin/Globulin Ratio 0.7 (0.8-1.8); Bilirubin, Total 0.7 mg/dL (0.1-1.0); Bun/Creatinine Ratio 12.8 (12.0-20.0); Calcium, Blood 6.8 mg/dL (8.5-10.1); Creatinine, Blood 1.87 mg/dL (0.40-1.00); Potassium, Blood 4.2 mmol/L (3.5-5.5); Total Protein, Blood 5.2 g/dL (6.4-8.2)
--- NOTE | 2021-08-18 06:51 | NUR ---
PATIENT IS ASLEEP LYING IN BED. PT HAD FREQUENT WATERY STOOLS THROUGHOUT NIGHT, UNABLE TO RECOLLECT STOOL SAMPLE DUE TO CONSITENCY. BED IN LOW POSITION, BED ALARM ON AND CALL LIGHT WITHIN REACH.
--- NOTE | 2021-08-18 14:41 | NUR ---
PT HUSB CALLED, ERIN, . STATES STOMACH SURG ULCER 3-4 MONTHS AGO, HAD ARM INFECT AT IV SITE. HIS UNDERSTNDING IS THAT SHE GOT C-DIFF FROM [facility] FROM THAT.
--- NOTE | 2021-08-18 18:46 | NUR ---
PT QUITE PLEASANT TODAY. SOME CONFUSION NOTED. TAKING MEDS ORDERED . SHE HAS BEEN ON PHONE MANY TIMES WHEN I CAME TO ROOM TO DAY. NO NEW CONCERNS NOTED. BED IN LOW POSITION, CALL LITE IN REACH, BED ALARM ON FOR SAFETY
[2021-08-19 05:12] LABS: Bun/Creatinine Ratio 12.7 (12.0-20.0); Creatinine, Blood 1.34 mg/dL (0.40-1.00); Potassium, Blood 3.7 mmol/L (3.5-5.5)
--- NOTE | 2021-08-19 06:30 | NUR ---
PATIENT IS ASLEEP LYING IN BED. PT WAS CONFUSED AND REQUIRED FREQUENT REORIENTING THROUGHOUT NIGHT. BED ALARM ON, BED IN LOW POSITION AND CALL LIGHT WITHIN REACH.
[2021-08-19 08:11] LABS: HBSAG SCREEN Negative (Negative); HEP A AB, IGM Negative (Negative); HEP B CORE AB, IGM Negative (Negative); HEP B CORE AB, TOT Negative (Negative); HEP C VIRUS AB <0.1 (0.0-0.9)
[2021-08-19 13:33] LABS: Campylobacter Sp Not Detected (NOT DETECT)
[2021-08-19 13:34] LABS: Adenovirus F 40/41 Not Detected (NOT DETECT); Astrovirus Not Detected (NOT DETECT); Cryptosporidium Not Detected (NOT DETECT); Cyclospora Cayetanensis Not Detected (NOT DETECT); E. Coli O157 Not Detected (NOT DETECT); Entamoeba Histolytica Not Detected (NOT DETECT); Enteroaggregative E. coli-EAEC Not Detected (NOT DETECT); Enteropathogenic E. coli-EPEC Not Detected (NOT DETECT); Enterotoxigenic E. coli-ETEC Not Detected (NOT DETECT); Giardia Lamblia Not Detected (NOT DETECT); Norovirus GI/GII Not Detected (NOT DETECT); Plesiomonas Shigelloides Not Detected (NOT DETECT); Rotavirus A Not Detected (NOT DETECT); Salmonella Sp Not Detected (NOT DETECT); Sapovirus Not Detected (NOT DETECT); Shiga Toxin-prod E. coli-STEC Not Detected (NOT DETECT); Shigella/Enteroin E. coli-EIEC Not Detected (NOT DETECT); Vibrio Cholerae Not Detected (NOT DETECT); Vibrio Sp Not Detected (NOT DETECT); Yersinia Enterocolitica Not Detected (NOT DETECT)
--- NOTE | 2021-08-19 18:11 | NUR ---
PT HAS BEEN QUITE DISAGREEABLE THIS AM. CLEAR UNTIL CAME IN AT 2 PN TO DISCUSS HER STAYING. SHE ATTEMPTED TO LEAVE COUPLE TIMES. SHE CALLED 911 SEVERAL TIMES. I SPOKE TO HUSB ABOUT THIS. DEMENTIA AND OCC PARANIOA NOTED PER . HE GOT PT CALMED DOWN. MUCH BETTER THIS DAHLIA. NO ARGUING OR COMPLAINING OR LEAVING. PT ACCEPTING MEDS WITHOUT ISSUE THIS DAHLIA. DID PULL BOTH IVS, DR NOTIFIED AND ACCEPTED NO IV AT THIS TIME. BED IN LOW POSITION, CALL LITE IN REACH,
[2021-08-20 05:05] LABS: Bun/Creatinine Ratio 11.9 (12.0-20.0); Creatinine, Blood 1.18 mg/dL (0.40-1.00); Potassium, Blood 3.6 mmol/L (3.5-5.5)
--- NOTE | 2021-08-20 05:52 | NUR ---
PATIENT IS ASLEEP LYING IN BED. PT HAD EPISODES OF CONFUSION AND SEVERAL ATTEMPTS TO LEAVE THE ROOM AND ROAM THE HALLWAYS WITHOUT ASSISTANCE. NO OTHER ACUTE CHANGES OVERNIGHT. BED ALARM ON, BED IN LOW POSITION AND CALL LIGHT WITHIN REACH.
--- NOTE | 2021-08-20 08:28 | NUR ---
PT HAD 1/2 INCH SEGMENTED WORM IN STOOL THIS MORNING. NIGHT RN ALSO REPORTED FINDING A WORM IN PT BEDDING LAST NIGHT. DR. WELLER NOTIFIED AND ORDER OBTAINED FOR O&P STOOL TEST. UNFORTUNATELY SAMPLE COULD NOT BED SENT DUE TO URINE CONTAMINATING SAMPLE. NOTIFIED PT AND GAVE HAT REQUESTING PT TO KEEP URINE AND STOOL SEPARATE.
--- NOTE | 2021-08-20 16:56 | NUR ---
SHIFT SUMMARY: PT A/O X 3 TODAY, PLEASANT AND COOPERATIVE. SHE HAS BEEN IND IN ROOM AND STEADY ON HER FEET. PT HAS HAD NO ACUTE CHANGES THROUGHOUT THE DAY. PT EATING/DRINKING WELL. STOOL COLOR IS GREEN BROWN AND JELLY LIKE SUBSTANCE. SAMPLE SENT TODAY FOR O&P LAB.
--- NOTE | 2021-08-21 04:09 | NUR ---
SUMMARY PT HAD NO NEW ISSUES NOTED. PT CONTINUES TO HAVE SOME JELLY LIKE STOOLS. PT DENIES ABD DISCOMFORT. PT HAS BEEN SLEEPING WELL THROUGHOUT SHIFT. CALL LIGHT IN REACH AND BED ALARM ON.
[2021-08-21 04:53] LABS: Hematocrit 37.1 % (33.0-51.0); Hemoglobin 11.1 g/dL (11.5-16.0); Mean Corpuscular HGB 25.1 pg (26.0-34.0); Mean Corpuscular HGB Conc 29.9 g/dL (31.5-36.5); Mean Corpuscular Volume 84 fL (80-100); Mean Platelet Volume 10.3 fL (9.1-12.4); Platelet Count 355 K/mm3 (150-400); RDW Coefficient Variation 23.1 % (11.7-14.2); RDW Standard Deviation 69.1 fL (35.1-46.3); Red Blood Cell Count 4.42 M/mm3 (3.80-5.20); White Blood Cell Count 9.96 K/mm3 (4.00-11.30)
[2021-08-21 05:28] LABS: Albumin, Blood 2.4 g/dL (3.4-5.0); Albumin/Globulin Ratio 0.7 (0.8-1.8); Bilirubin, Total 0.5 mg/dL (0.1-1.0); Bun/Creatinine Ratio 9.1 (12.0-20.0); Calcium, Blood 7.4 mg/dL (8.5-10.1); Creatinine, Blood 1.1 mg/dL (0.40-1.00); Globulin, Blood 3.4 g/dL (2.2-4.0); Potassium, Blood 3.5 mmol/L (3.5-5.5); Total Protein, Blood 5.8 g/dL (6.4-8.2)
--- NOTE | 2021-08-21 12:24 | NUR ---
DISCHARGE NOTE: PT AND SPOUSE ERIN EDUCATED ON DC INSTRUCTIONS, MEDICATIONS. PT BELONGINGS PACKED UP AND PT SENT WITH PT. PT ESCORTED BY [facility] TO [facility] WITH BELONGINGS.
--- NOTE | 2021-08-21 15:40 | NUR ---
Pt. is doing much better and is discharged for good
== END 2021-08-21 12:22 | disposition home or self-care (01) | DRG 372 ==
LOC: ER 18:14 → MEDS 23:55 → ENPENDDIS 08-21 10:48 → MEDS 08-21 12:22
PROVIDERS: Family Medicine; Internal Medicine; Student in an Organized Health Care Education/Training Program; ADMIT Internal Medicine
DX: A04.71 Enterocolitis due to Clostridium difficile, recurrent (principal); N17.9 Acute kidney failure, unspecified; E87.1 Hypo-osmolality and hyponatremia; N39.0 Urinary tract infection, site not specified; D63.1 Anemia in chronic kidney disease; Z20.822 Contact with and (suspected) exposure to COVID-19; R74.01 Elevation of levels of liver transaminase levels; B96.1 Klebsiella pneumoniae [K. pneumoniae] as the cause of diseases classified elsewhere; E86.0 Dehydration; E78.5 Hyperlipidemia, unspecified; J45.909 Unspecified asthma, uncomplicated; E03.9 Hypothyroidism, unspecified; F31.9 Bipolar disorder, unspecified; G31.84 Mild cognitive impairment of uncertain or unknown etiology; G47.33 Obstructive sleep apnea (adult) (pediatric); N18.30 Chronic kidney disease, stage 3 unspecified; Z86.010 Personal history of colon polyps; Z90.710 Acquired absence of both cervix and uterus; Z99.89 Dependence on other enabling machines and devices; Z88.2 Allergy status to sulfonamides; Z88.8 Allergy status to other drugs, medicaments and biological substances; Z79.899 Other long term (current) drug therapy
CPT/HCPCS: 0097U; 36415; 80048; 80053; 80074; 81001; 83690; 83735; 85025; 85027; 86317; 86704; 86708; 86803; 87077; 87086; 87177; 87186; 87209; 87324; 87340; 93005; 93010; 94640; 94664; 94760; 96361; 96365; 96375; 99285-25; A9270; J0696; J1650; J2405; J7030; J7120; U0004

== ENCOUNTER → 2021-08-17 | Outpatient (CLI) | payer MEDICARE, OTHER ==
[~2021-08-17] MED LIST changes: +PROBIOTIC1 EA13 PO; +VANCOCIN HCL250 MG PO
[2021-08-17 17:29] LABS: Alanine Aminotransfer (ALT/SGP 78 U/L (12-78); Albumin, Blood 3.4 g/dL (3.4-5.0); Albumin/Globulin Ratio 0.9 (0.8-1.8); Alk Phos 74 U/L (40-126); Anion Gap 15 mmol/L (6-16); Aspartate Aminotrans (AST/SGOT 71 U/L (12-37); Bilirubin, Total 1.2 mg/dL (0.1-1.0); Blood Urea Nitrogen 28 mg/dL (8-24); Bun/Creatinine Ratio 10.6 (12.0-20.0); CO2, Blood 19 mmol/L (21-32); Calcium, Blood 8.2 mg/dL (8.5-10.1); Chloride, Blood 101 mmol/L (98-108); Creatinine, Blood 2.64 mg/dL (0.40-1.00); Globulin, Blood 3.7 g/dL (2.2-4.0); Glomerular Filtration Rate 18 (60-); Glucose, Blood 93 mg/dL (70-99); Potassium, Blood 4.7 mmol/L (3.5-5.5); Sodium, Blood 135 mmol/L (136-145); Thyroid Stimulating Hormone 3.615 uIU/mL (0.360-4.800); Total Protein, Blood 7.1 g/dL (6.4-8.2); Troponin I <0.017 ng/mL (0.000-0.040)
== END | disposition home or self-care (01) ==
LOC: LAB SHORT 17:04
PROVIDERS: Chiropractor
DX: R53.83 Other fatigue (principal); Z86.19 Personal history of other infectious and parasitic diseases
CPT/HCPCS: 80053; 84443; 84484; 87015; 87045; 87046; 87205; 87899

== ENCOUNTER → 2021-08-22 | Outpatient (CLI) | payer MEDICARE, OTHER ==
[2021-08-22 15:31] LABS: BASOPHILS ABSOLUTE AUTO 0.05 K/mm3 (0.00-0.23); BASOPHILS PERCENT AUTO 0 % (0-2); EOSINOPHILS PERCENT AUTO 7 % (0-6); Hematocrit 34.9 % (33.0-51.0); Hemoglobin 10.8 g/dL (11.5-16.0); IMMATURE GRAN ABSOLUTE AUTO 0.12 K/mm3 (0.00-0.10); IMMATURE GRAN PERCENT AUTO 1 % (0-1); LYMPHOCYTES ABSOLUTE AUTO 1.38 K/mm3 (0.84-5.20); LYMPHOCYTES PERCENT AUTO 12 % (21-46); MONOCYTES ABSOLUTE AUTO 1.62 K/mm3 (0.16-1.47); MONOCYTES PERCENT AUTO 14 % (4-13); Mean Corpuscular HGB 25.2 pg (26.0-34.0); Mean Corpuscular HGB Conc 30.9 g/dL (31.5-36.5); Mean Corpuscular Volume 82 fL (80-100); Mean Platelet Volume 10.1 fL (9.1-12.4); NEUTROPHILS ABSOLUTE AUTO 7.97 K/mm3 (1.96-9.15); NEUTROPHILS PERCENT AUTO 67 % (41-73); Platelet Count 384 K/mm3 (150-400); RDW Coefficient Variation 23.9 % (11.7-14.2); RDW Standard Deviation 69.7 fL (35.1-46.3); Red Blood Cell Count 4.28 M/mm3 (3.80-5.20); White Blood Cell Count 11.94 K/mm3 (4.00-11.30)
[2021-08-22 15:38] LABS: Bun/Creatinine Ratio 9.3 (12.0-20.0); Calcium, Blood 7.1 mg/dL (8.5-10.1); Creatinine, Blood 1.29 mg/dL (0.40-1.00); Potassium, Blood 3.6 mmol/L (3.5-5.5); Uric Acid, Blood 7.1 mg/dL (2.6-6.0)
== END | disposition home or self-care (01) ==
LOC: LAB 15:27 → LAB SHORT 15:27
PROVIDERS: Chiropractor
DX: R53.83 Other fatigue (principal); R79.89 Other specified abnormal findings of blood chemistry
CPT/HCPCS: 80048; 84550; 85025

== ENCOUNTER → 2021-09-05 | Outpatient (CLI) | payer MEDICARE, OTHER ==
[2021-09-05 16:15] LABS: Adenovirus F 40/41 Not Detected (NOT DETECT); Astrovirus Not Detected (NOT DETECT); Campylobacter Sp Not Detected (NOT DETECT); Cryptosporidium Not Detected (NOT DETECT); Cyclospora Cayetanensis Not Detected (NOT DETECT); E. Coli O157 Not Detected (NOT DETECT); Entamoeba Histolytica Not Detected (NOT DETECT); Enteroaggregative E. coli-EAEC Not Detected (NOT DETECT); Enteropathogenic E. coli-EPEC Not Detected (NOT DETECT); Enterotoxigenic E. coli-ETEC Not Detected (NOT DETECT); Giardia Lamblia Not Detected (NOT DETECT); Norovirus GI/GII Not Detected (NOT DETECT); Plesiomonas Shigelloides Not Detected (NOT DETECT); Rotavirus A Not Detected (NOT DETECT); Salmonella Sp Not Detected (NOT DETECT); Sapovirus Not Detected (NOT DETECT); Shiga Toxin-prod E. coli-STEC Not Detected (NOT DETECT); Shigella/Enteroin E. coli-EIEC Not Detected (NOT DETECT); Vibrio Cholerae Not Detected (NOT DETECT); Vibrio Sp Not Detected (NOT DETECT); Yersinia Enterocolitica Not Detected (NOT DETECT)
== END | disposition home or self-care (01) ==
LOC: LAB SHORT 09:30 → LAB 09:30
PROVIDERS: Internal Medicine Gastroenterology
DX: A49.8 Other bacterial infections of unspecified site (principal); K52.9 Noninfective gastroenteritis and colitis, unspecified
CPT/HCPCS: 0097U

== ENCOUNTER → 2021-11-14 | Outpatient (CLI) | payer MEDICARE, OTHER ==
[2021-11-15 16:56] LABS: Adenovirus F 40/41 Not Detected (NOT DETECT); Astrovirus Not Detected (NOT DETECT); Campylobacter Sp Not Detected (NOT DETECT); Cryptosporidium Not Detected (NOT DETECT); Cyclospora Cayetanensis Not Detected (NOT DETECT); E. Coli O157 Not Detected (NOT DETECT); Entamoeba Histolytica Not Detected (NOT DETECT); Enteroaggregative E. coli-EAEC Not Detected (NOT DETECT); Enteropathogenic E. coli-EPEC Not Detected (NOT DETECT); Enterotoxigenic E. coli-ETEC Not Detected (NOT DETECT); Giardia Lamblia Not Detected (NOT DETECT); Norovirus GI/GII Detected (NOT DETECT); Plesiomonas Shigelloides Not Detected (NOT DETECT); Rotavirus A Not Detected (NOT DETECT); Salmonella Sp Not Detected (NOT DETECT); Sapovirus Not Detected (NOT DETECT); Shiga Toxin-prod E. coli-STEC Not Detected (NOT DETECT); Shigella/Enteroin E. coli-EIEC Not Detected (NOT DETECT); Vibrio Cholerae Not Detected (NOT DETECT); Vibrio Sp Not Detected (NOT DETECT); Yersinia Enterocolitica Not Detected (NOT DETECT)
== END | disposition home or self-care (01) ==
LOC: LAB SHORT 16:50
PROVIDERS: Student in an Organized Health Care Education/Training Program
DX: K52.9 Noninfective gastroenteritis and colitis, unspecified (principal)
CPT/HCPCS: 0097U; 87324

== ENCOUNTER → 2023-08-23 | Outpatient (CLI) | payer MEDICARE | END | disposition home or self-care (01) | LOC: LAB SHORT 13:03 → LAB 13:03 | DX: D50.0 Iron deficiency anemia secondary to blood loss (chronic) (principal); E53.8 Deficiency of other specified B group vitamins | CPT/HCPCS: 82607 ==

== ENCOUNTER 2024-07-10 10:07 | Emergency (ER) | payer MEDICARE, OTHER ==
[~2024-07-10] VITALS: Ht 157.5 cm; Wt 60.3 kg
[2024-07-10 10:37] VITALS: BP 120/74
== END 2024-07-10 12:52 | disposition home or self-care (01) ==
LOC: ER 10:07
DX: L02.214 Cutaneous abscess of groin (principal); K21.9 Gastro-esophageal reflux disease without esophagitis; J45.909 Unspecified asthma, uncomplicated; E78.5 Hyperlipidemia, unspecified; E03.9 Hypothyroidism, unspecified; Z79.899 Other long term (current) drug therapy; Z88.2 Allergy status to sulfonamides; Z88.8 Allergy status to other drugs, medicaments and biological substances
CPT/HCPCS: 10060; 99282-25

== ENCOUNTER → 2025-01-14 | Outpatient (CLI) | payer MEDICARE, OTHER ==
[2025-01-14 15:40] LABS: Campylobacter Sp Not Detected (NOT DETECT)
[2025-01-14 15:41] LABS: Adenovirus F 40/41 Not Detected (NOT DETECT); Astrovirus Not Detected (NOT DETECT); Cryptosporidium Not Detected (NOT DETECT); Cyclospora Cayetanensis Not Detected (NOT DETECT); E. Coli O157 Not Detected (NOT DETECT); Entamoeba Histolytica Not Detected (NOT DETECT); Enteroaggregative E. coli-EAEC Not Detected (NOT DETECT); Enteropathogenic E. coli-EPEC Not Detected (NOT DETECT); Enterotoxigenic E. coli-ETEC Not Detected (NOT DETECT); Giardia Lamblia Not Detected (NOT DETECT); Norovirus GI/GII Not Detected (NOT DETECT); Plesiomonas Shigelloides Not Detected (NOT DETECT); Rotavirus A Not Detected (NOT DETECT); Salmonella Sp Not Detected (NOT DETECT); Sapovirus Not Detected (NOT DETECT); Shiga Toxin-prod E. coli-STEC Not Detected (NOT DETECT); Shigella/Enteroin E. coli-EIEC Not Detected (NOT DETECT); Vibrio Cholerae Not Detected (NOT DETECT); Vibrio Sp Not Detected (NOT DETECT); Yersinia Enterocolitica Not Detected (NOT DETECT)
== END | disposition home or self-care (01) ==
LOC: LAB SHORT 10:48 → LAB 10:48
PROVIDERS: Internal Medicine
DX: R19.7 Diarrhea, unspecified (principal)
CPT/HCPCS: 87507

== ENCOUNTER 2025-09-06 10:36 | Emergency (ER) | payer MEDICARE, OTHER ==
[~2025-09-06] VITALS: Ht 160 cm; Wt 63.5 kg
[2025-09-06 11:25] LABS: BASOPHILS ABSOLUTE AUTO 0.08 K/mm3 (0.00-0.23); BASOPHILS PERCENT AUTO 1 % (0-2); EOSINOPHILS ABSOLUTE AUTO 0.46 K/mm3 (0.00-0.68); EOSINOPHILS PERCENT AUTO 5 % (0-6); Hematocrit 47.1 % (33.0-51.0); Hemoglobin 16.0 g/dL (11.5-16.0); IMMATURE GRAN ABSOLUTE AUTO 0.02 K/mm3 (0.00-0.10); IMMATURE GRAN PERCENT AUTO 0 % (0-1); LYMPHOCYTES ABSOLUTE AUTO 1.27 K/mm3 (0.84-5.20); LYMPHOCYTES PERCENT AUTO 14 % (21-46); MONOCYTES ABSOLUTE AUTO 0.80 K/mm3 (0.16-1.47); MONOCYTES PERCENT AUTO 9 % (4-13); Mean Corpuscular HGB Conc 34.0 g/dL (31.5-36.5); Mean Corpuscular Volume 97 fL (80-100); NEUTROPHILS ABSOLUTE AUTO 6.49 K/mm3 (1.96-9.15); NEUTROPHILS PERCENT AUTO 71 % (41-73); NRBC ABSOLUTE 0.00 K/mm3 (0.00-0.02); NRBC Auto 0.0 /100 WBC (0.0-0.2); Platelet Count 275 K/mm3 (150-400); RDW Coefficient Variation 13.0 % (11.7-14.2); RDW Standard Deviation 46.2 fL (35.1-46.3)
[2025-09-06 11:38] LABS: Alanine Aminotransfer (ALT/SGP 24.0 U/L (12-78); Albumin, Blood 3.7 g/dL (3.4-5.0); Albumin/Globulin Ratio 0.9 (0.8-1.8); Anion Gap 11.0 mmol/L (3-11); Aspartate Aminotrans (AST/SGOT 30.0 U/L (12-37); Bilirubin, Total 0.8 mg/dL (0.1-1.0); Blood Urea Nitrogen 21.0 mg/dL (8-24); CO2, Blood 22.0 mmol/L (21-32); Calcium, Blood 9.1 mg/dL (8.5-10.1); Chloride, Blood 107.0 mmol/L (98-108); Creatinine, Blood 1.04 mg/dL (0.40-1.00); Globulin, Blood 3.9 g/dL (2.2-4.0); Glucose, Blood 104.0 mg/dL (70-99); Potassium, Blood 4.0 mmol/L (3.5-5.5); Sodium, Blood 136.0 mmol/L (136-145); Total Protein, Blood 7.6 g/dL (6.4-8.2)
[2025-09-06] MEDS ORDERED: NS 1,000 ML IV SCH (11:50)
[2025-09-06 12:23] LABS: Influenza A, PCR NEGATIVE (NEGATIVE); Influenza B, PCR NEGATIVE (NEGATIVE); Resp Syncytial Virus, PCR NEGATIVE (NEGATIVE); SARS-Cov-2 (COVID-19) PCR, MMC NEGATIVE (NEGATIVE)
[2025-09-06 13:15] LABS: Source, Urine Clean Catch
[2025-09-06 13:19] LABS: Bilirubin, Urine Neg (Neg); Color, Urine Yellow (P-Yellow); Glucose Qualitative, Urine Neg (Neg); Ketones, Urine 3+ (Neg); Leukocyte Esterase, Urine 1+ (Neg); Protein, Urine 2+ (Neg); Specific Gravity, Urine 1.025 (1.003-1.022); Urobilinogen, Urine 1+ (Normal)
[2025-09-06 14:10] VITALS: BP 166/87
== END 2025-09-06 14:17 | disposition home or self-care (01) ==
LOC: ER 10:36
PROVIDERS: Physician Assistant
DX: E86.0 Dehydration (principal); T73.0XXA Starvation, initial encounter; F03.90 Unspecified dementia, unspecified severity, without behavioral disturbance, psychotic disturbance, mood disturbance, and anxiety; Z88.2 Allergy status to sulfonamides; Z88.8 Allergy status to other drugs, medicaments and biological substances; Z91.09 Other allergy status, other than to drugs and biological substances; Z79.890 Hormone replacement therapy; Z79.51 Long term (current) use of inhaled steroids; Z79.899 Other long term (current) drug therapy; Z59.89 Other problems related to housing and economic circumstances; X58.XXXA Exposure to other specified factors, initial encounter
CPT/HCPCS: 51701; 70450; 80053; 81001; 85025; 87086; 87637; 93005; 93010; 99285-25; J7030

== ENCOUNTER → 2025-11-10 | Outpatient (CLI) | payer MEDICARE, OTHER ==
[2025-11-10 17:24] LABS: Campylobacter Sp Not Detected (NOT DETECT); E. Coli O157 Not Detected (NOT DETECT); Enteroaggregative E. coli-EAEC Not Detected (NOT DETECT); Enteropathogenic E. coli-EPEC Not Detected (NOT DETECT); Enterotoxigenic E. coli-ETEC Not Detected (NOT DETECT); Salmonella Sp Not Detected (NOT DETECT); Shiga Toxin-prod E. coli-STEC Not Detected (NOT DETECT); Shigella/Enteroin E. coli-EIEC Not Detected (NOT DETECT); Vibrio Sp Not Detected (NOT DETECT)
== END ==
LOC: LAB SHORT 14:27 → LAB 14:27
PROVIDERS: Internal Medicine
DX: R19.7 Diarrhea, unspecified (principal)
CPT/HCPCS: 87507